=== PATIENT | female | born 1995 | race Two or more races ===

== ENCOUNTER 2017-12-10 08:48 | Emergency (ER) | payer OTHER ==
[2017-12-10 08:58] VITALS: BP 117/61
[2017-12-10] MEDS ORDERED: PENICILLIN G BENZATHINE 1.2 MILLION UNIT/2 ML DISP.SYRIN IM ONE (09:49)
--- NOTE | 2017-12-10 09:54 | ER Document Report ---
ED ENT - General Chief Complaint: Nose Problem Stated Complaint: POSSIBLE INFECTION Time Seen by Provider: 12/10/17 09:03 Mode of Arrival: Ambulatory Information source: Patient Notes: 22-year-old female presents to ED for an infected nose ring to the left side of her nose. She states that she had a problem with it on the and they put some antibiotic on it but it is getting worse. States she also has a sore throat with itchy eyes. Patient is alert and oriented pupils equal and react light, speaking in full sentences, respirations regular and unlabored, patient works at a even steady gait. TRAVEL OUTSIDE OF THE [place] IN LAST 30 DAYS: No - HPI Patient complains to provider of: Nose problem, Throat problem Onset: Last week Onset/Duration: Persistent Quality of pain: Achy, Sharp Severity: Mild Pain Level: 1 Location of pain: Nose, Throat Associated symptoms: Sore throat, Other - Infected nose ring Similar symptoms previously: Yes Recently seen / treated by doctor: Yes - Related Data Allergies/Adverse Reactions: No Known Allergies Allergy (Unverified 12/10/17 08:50) Past Medical History - General Information source: Patient - Social History Smoking Status: Never Smoker Cigarette use (# per day): No Chew tobacco use (# tins/day): No Smoking Education Provided: No Frequency of alcohol use: None Drug Abuse: None Lives with: Family Family History: Reviewed & Not Pertinent Patient has suicidal ideation: No Patient has homicidal ideation: No - Past Medical History Cardiac Medical History: Reports: None Pulmonary Medical History: Reports: None EENT Medical History: Reports: None Neurological Medical History: Reports: None Endocrine Medical History: Reports: None Renal/ Medical History: Reports: None Malignancy Medical History: Reports: None GI Medical History: Reports: None Musculoskeltal Medical History: Reports None Skin Medical History: Reports None Psychiatric Medical History: Reports: None Traumatic Medical History: Reports: None Infectious Medical History: Reports: None Surgical Hx: Negative Past Surgical History: Reports: None - Immunizations Immunizations up to date: Yes Hx Diphtheria, Pertussis, Tetanus Vaccination: Yes Review of Systems - Review of Systems Constitutional: No symptoms reported EENT: No symptoms reported, Nose pain, Throat pain, Mouth pain Cardiovascular: No symptoms reported Respiratory: No symptoms reported Gastrointestinal: No symptoms reported Genitourinary: No symptoms reported Female Genitourinary: No symptoms reported Musculoskeletal: No symptoms reported Skin: No symptoms reported Hematologic/Lymphatic: No symptoms reported Neurological/Psychological: No symptoms reported -: Yes All other systems reviewed and negative Physical Exam - Vital signs Vitals: Temp Pulse Resp BP Pulse Ox 97.8 F 63 18 117/61 99 12/10/17 08:51 12/10/17 08:51 12/10/17 08:51 12/10/17 08:51 12/10/17 08:51 Interpretation: Normal - General General appearance: Appears well, Alert - HEENT Head: Normocephalic, Atraumatic Eyes: Normal Pupils: PERRL Ears: Normal External canal: Normal Tympanic membrane: Normal Sinus: Normal Nasal: Other - Acted nose ring removed Mouth/Lips: Normal Pharynx: Erythema, Tonsillar hypertrophy Neck: Anterior cervical chain - Respiratory Respiratory status: No respiratory distress Chest status: Nontender Breath sounds: Normal Chest palpation: Normal - Cardiovascular Rhythm: Regular Heart sounds: Normal auscultation Murmur: No - Abdominal Inspection: Normal Distension: No distension Bowel sounds: Normal Tenderness: Nontender Organomegaly: No organomegaly - Back Back: Normal, Nontender - Extremities General upper extremity: Normal inspection, Nontender, Normal color, Normal ROM , Normal temperature General lower extremity: Normal inspection, Nontender, Normal color, Normal ROM , Normal temperature, Normal weight bearing. No: Alina's sign - Neurological Neuro grossly intact: Yes Cognition: Normal Orientation: AAOx4 [place] Coma Scale Eye Opening: Spontaneous [place] Coma Scale Verbal: Oriented Dejah Coma Scale Motor: Obeys Commands [place] Coma Scale Total: 15 Speech: Normal Motor strength normal: LUE, RUE, LLE, RLE Sensory: Normal - Psychological Associated symptoms: Normal affect, Normal mood - Skin Skin Temperature: Warm Skin Moisture: Dry Skin Color: Normal Course - Re-evaluation Re-evalutation: 12/10/17 10:03 Patient was treated with penicillin G for her strep throat the nose ring was removed cleaned and Bactroban that she already had applied. Patient was instructed to keep this area clean until it healed. Patient to follow-up with her primary doctor and ibuprofen prescription given. She verbalized understanding of instructions. - Vital Signs Vital signs: Temp Pulse Resp BP Pulse Ox 97.8 F 63 18 117/61 99 12/10/17 08:51 12/10/17 08:51 12/10/17 08:51 12/10/17 08:51 12/10/17 08:51 Discharge - Discharge Clinical Impression: Infected nose ring, Strep pharyngitis Condition: Stable Disposition: HOME, SELF-CARE Instructions: Family Physicians / Practices Additional Instructions: SSTREP THROAT: Your sore throat is due to the streptococcus germ (strep throat). Strep throat usually makes you feel quite ill with fever and aches, headache, swollen sore throat, and tender bumps under the angles of the jaw. Strep throat requires antibiotic treatment. Although the sore throat may go away by itself, complications such as rheumatic fever, kidney disease, or throat abscess can occur. We usually prescribe antibiotics by mouth. Be sure to take the medicine until it's gone. If you stop early, the strep may come back. If you are vomiting, are severely ill, or can't remember to take pills, we can give you an antibiotic shot. Take acetaminophen or ibuprofen for pain and fever. Sip frequent clear liquids, or use popsicles or ice chips. Anesthetic sprays or lozenges may help. Make sure the air in the room is not too dry. Avoid using decongestants or antihistamines. Call the doctor if there is no improvement in three days, or if you have difficulty breathing, increasing throat pain, high fever, rash, or frequent vomiting. Penicillins The antibiotic you have received is a member of the penicillin family. This is a very useful class of antibiotics. The particular type of antibiotic chosen for you was determined by the nature of your problem. Penicillins are absorbed best when taken on an empty stomach, and should be taken either a half hour before or two hours after a meal. Some newer medicines of the penicillin class are better taken with food -- if this is the case, the pharmacist will label the medicine to alert you. Penicillins usually have no side effects. However, allergy to penicillins is common. If you have had an allergic reaction to any drug of the penicillin family, you should never take any other penicillin. Notify your doctor at once if you develop hives, itching, swelling, faintness, or shortness of breath. Less serious side effects can include nausea or diarrhea. Ibuprofen Ibuprofen is an excellent, safe drug for pain control. In addition, it has potent antiinflammatory effects which are beneficial, especially in the treatment of injuries, arthritis, or tendonitis. It's best to take ibuprofen with food. Persons with ulcer disease or allergy to aspirin should notify their physician of this before taking ibuprofen. Take the medication exactly as prescribed. Don't take additional doses unless instructed to do so by your doctor. If you develop wheezing, shortness of breath, hives, faintness, stomach pain, vomiting, or dark black stools, return for re-evaluation at once. FOLLOW-UP CARE: If you have been referred to a physician for follow-up care, call the physician s office for an appointment as you were instructed or within the next two days. If you experience worsening or a significant change in your symptoms, notify the physician immediately or return to the Emergency Department at any time for re-evaluation. Prescriptions: Ibuprofen 600 mg PO Q8HP PRN #20 tablet PRN Reason:
== END 2017-12-10 10:00 | disposition home or self-care (01) ==
LOC: ER 08:48
DX: J02.0 Streptococcal pharyngitis (principal); L08.89 Other specified local infections of the skin and subcutaneous tissue
CPT/HCPCS: 99283; 96372; 87880; J0561